=== PATIENT | male | born 1965 | race Hispanic/Latino ===

== ENCOUNTER → 2016-10-12 | Outpatient (CLI) | payer OTHER | LOC: PREOP 05:44 | PROVIDERS: ATTEND Surgery | DX: Z01.818 Encounter for other preprocedural examination (principal) ==

== ENCOUNTER 2016-10-16 06:33 | Day surgery (SDC) | payer OTHER ==
[~2016-10-16] VITALS: Ht 165.1 cm; Wt 83.9 kg
[2016-10-16] MEDS ORDERED: NS IV 1000 ML 1,000 ML IV STA (07:03)
[2016-10-16] MEDS ORDERED: NS IV 1000 ML 1,000 ML ONE (07:15)
[2016-10-16] MEDS ORDERED: FLUMAZENIL (ROMAZICON) 0.1 MG/ML 5 ML VIAL INJ PRN (07:15)
[2016-10-16] MEDS ORDERED: NALOXONE 0.4 MG/ML 1 ML (NARCAN) VIAL IVP PRN (07:15)
[2016-10-16] MEDS ORDERED: proPOfol 200 MG/20 ML (DIPRIVAN) VIAL IV ONE (07:24)
[2016-10-16] MEDS ORDERED: fentaNYL INJECTION 100 MCG/2 ML AMP ONE (07:25)
[2016-10-16 07:36] VITALS: BP 114/65
--- NOTE | 2016-10-16 08:24 | Progress Note-Post Operative ---
Post-Operative Progess Note Surgeon (s)/Timber Estimator (s) Surgeon KOBE HORTON DO Timber Estimator: na Pre-Operative Diagnosis screening colonoscopy Post-Operative Diagnosis normal colon Procedure & Operative Findings Date of Procedure 10/16/16 Procedure Performed/Findings colonoscopy Anesthesia Type per mda Estimated Blood Loss Estimated blood loss (mL): none Specimens/Packing Specimens Removed none KOBE HORTON DO Oct 16, 2016 8:23 am
--- NOTE | 2016-10-16 08:25 | Discharge Inst-Simple/Standard ---
Discharge Inst-Standard Patient Instructions/Follow Up Plan of Care/Instructions/FU: repeat colonoscopy in 10 years. repeat in 5 years if family history of colon cancer. any problems prior to that be re-evaluated at that time. Activity as Tolerated: Yes Discharge Diet: Regular Diet KOBE HORTON DO Oct 16, 2016 8:25 am
[2016-10-16 08:30] VITALS: BP 112/67
[2016-10-16 08:55] VITALS: BP 109/67
[2016-10-16 09:53] VITALS: BP 109/67
--- NOTE | 2016-10-16 12:40 | OPERATIVE REPORT ---
DATE OF SERVICE: 10/16/2016 PREOPERATIVE DIAGNOSIS: Screening colonoscopy. POSTOPERATIVE DIAGNOSIS: Normal colon. PROCEDURE: Colonoscopy. SURGEON: Kobe Anne DO ANESTHESIA: Per MDA. ESTIMATED BLOOD LOSS: None. COMPLICATIONS: None. INDICATIONS: The patient is a 51-year-old female who has not had any recent problems. She has a history of pelvic and cancer of some sort that is unknown. She has on occasion has had some rectal pain, but none recently. She understands risks and benefits of procedure and wished to proceed with procedure. Consent was signed and on the chart. DESCRIPTION OF PROCEDURE: The patient was taken to the endoscopy suite, placed in left lateral recumbent position. Timeout was performed. Digital rectal exam was performed. There were no palpable polyps, masses or ulcerations. Scope was inserted in the rectum and advanced all the way to the cecum with minimal difficulty. Prep was adequate. Scope was slowly retracted back. There were no polyps, masses or ulcerations within the cecum, ascending, transverse, descending and sigmoid colon. In the rectum, the scope was attempted to be retroflexed but it was a very narrow rectum. Therefore, multiple insertions and retractions were made, noting no other pathology. Scope was slowly retracted until completely removed. The patient tolerated procedure well without any complications. She was taken to recovery room in stable condition. RECOMMENDATIONS: The patient will need repeat colonoscopy in 10 years unless family history of colon cancer, which then it will be 5 years. If she has any problems prior to that, she should be reevaluated at that time. Job ID: [id number] DocumentID: [id number] Dictated Date: 10/16/2016 08:27:50 Material Carrier Date: 10/16/2016 12:39:28 Dictated By: KOBE ANNE DO
== END 2016-10-16 09:00 | disposition home or self-care (01) ==
LOC: ENDO 06:33
PROVIDERS: ATTEND Surgery
DX: Z12.11 Encounter for screening for malignant neoplasm of colon (principal); Z85.40 Personal history of malignant neoplasm of unspecified female genital organ; Z92.21 Personal history of antineoplastic chemotherapy; Z92.3 Personal history of irradiation